=== PATIENT | female | born 1955 | race Caucasian/White ===

== ENCOUNTER → 2016-06-27 | Outpatient (CLI) | payer BC ==
[~2016-06-27] MED LIST: BACTRIM DS TAB1 EACH PO; CALCIUM 600 +1 EAC1 PO; CEFOXITIN2 GM IVPB; CENTRUM SILVER1 EAC4 PO; CINNAMON500 MG PO; CIPRO500 MG PO; CO Q-10100 MG PO; FISH OIL 1,001000 M2 PO; FLAGYL500 MG PO; FLOVENT HFA 1110 MCG INH; FLOVENT HFA 2220 MCG INH; HYDROCODONE-AP1 EAC6 PO; LISINOPRIL-HCT1 EACH PO; LORATIDINE 10 M10 M1 PO; PACERONE 200 M200 M1 PO; PROAIR HFA8.5 GM INH; PROBIOTIC1 EAC1 PO; UROCIT-K10 ME1 PO; VANCOMYCIN HCL1 GM IVPB; VITAMIN D1000 UNIT PO
== END ==
LOC: HYPER 07:03
DX: T81.89XD Other complications of procedures, not elsewhere classified, subsequent encounter (principal); E66.01 Morbid (severe) obesity due to excess calories; K42.9 Umbilical hernia without obstruction or gangrene; K51.90 Ulcerative colitis, unspecified, without complications; Z93.2 Ileostomy status; Y83.8 Other surgical procedures as the cause of abnormal reaction of the patient, or of later complication, without mention of misadventure at the time of the procedure; Z87.891 Personal history of nicotine dependence

== ENCOUNTER 2016-07-02 05:10 | Day surgery (SDC) | payer OTHER, BC ==
[~2016-07-02] VITALS: Ht 167.6 cm; Wt 117.9 kg
--- NOTE | ~2016-07-02 | H ---
[facility] [place] [address] HISTORY AND PHYSICAL Name: MELI FRIAS Room #: 150-3 [facility]#: [id number] Admission: 07/02/16 Attend Phys: Edin Cao MD Discharge: Date of : 55 Report #: [id number] THIS REPORT FOR: //name// CC: Vesna Cao PREOPERATIVE DIAGNOSIS: Left ureteral calculi. HISTORY OF PRESENT ILLNESS: The patient is a 61-year-old female with complex nephrolithiasis in May 2016. The patient underwent cystoscopy with retrograde pyelograms and attempted laser lithotripsy of ureteral calculi. The patient had a stricture within the ureter, and I could not gain access to 2 calculi in the mid to upper ureter to perform lithotripsy. A decompressive ureteral stent was subsequently placed for passive ureteral dilator and the patient now re-presents for repeat ureteroscopy and holmium laser lithotripsy of the calculi. PAST MEDICAL HISTORY: Significant for hypertension, exogenous obesity, anxiety, asthmatic disorder, cervical disk disease and ulcerative colitis. PAST SURGICAL HISTORY: Includes anterior cervical fusion, , arthroscopy, total colectomy with ileostomy, ureteral stone extractions and extracorporeal shock wave lithotripsy. CURRENT MEDICATIONS: Regimen includes amiodarone, lisinopril-HCTZ 10/25 daily, Flovent and albuterol inhalers. ALLERGIES: None known. SOCIAL HISTORY: The patient has a 41-prid-olgc history of smoking with cessation. Does not use alcohol or recreational drugs. FAMILY HISTORY: Noncontributory. PHYSICAL EXAMINATION: GENERAL: The patient is obese, well-developed. HEENT: Normocephalic and atraumatic. NECK: Supple. Thyroid is not palpable. LUNGS: Reveal diminished breath sounds. CARDIOVASCULAR: Regular rate and rhythm without murmur. ABDOMEN: Soft, without mass. She has a right lower quadrant ileostomy. PELVIC: Deferred. NEUROMUSCULAR: Exam is nonfocal. IMPRESSION: Retained left ureteral calculi, previously inaccessible to ureteroscopy. [facility] [address] [place] [address] HISTORY AND PHYSICAL Name: MELI FRIAS Room #: [address] [place] [address]..#: [id number] Admission: 07/02/16 Attend Phys: Edin Cao MD Discharge: Date of : 55 Report #: [id number] PLAN: Ureteroscopic stone extraction with laser lithotripsy. DISCUSSION: I have discussed the procedure with attendant risk of ureteral injury, bleeding and the possibility of the stones not being accessible via retrograde manner. If secondary procedure fails after passive ureteral dilator with indwelling stent, the patient will require percutaneous stone extraction via antegrade approach. <ELECTRONICALLY SIGNED> By: Edin Cao MD 07/02/16 1221 1557 [id number] Edin Cao MD /nt
--- NOTE | ~2016-07-02 | O ---
[facility] [place] [address] OPERATIVE REPORT Name: MELI FRIAS Room #: DEP [facility]#: [id number] Admission: 07/02/16 Attend Phys: Edin Cao MD Discharge: 07/02/16 Date of : 55 Report #: [id number] THIS REPORT FOR: //name// CC: Vesna Cao DATE OF SERVICE: 07/02/2016 PREOPERATIVE DIAGNOSIS: Retained left ureteral calculus. POSTOPERATIVE DIAGNOSIS: Retained left ureteral calculus. PROCEDURE: Cystoscopy with left ureteroscopic stone extraction with assisted holmium laser lithotripsy and replacement of indwelling ureteral stent. INDICATIONS FOR PROCEDURE: The patient is a 61-year-old female with complex nephrolithiasis. Last month, she underwent extraction of a left ureteral stone in the distal ureter. Unfortunately, access to the stone located in the upper ureter was not possible due to anatomical constraints and inability to gain access to the stone via ureteroscopy. The patient had a placement of a decompressive ureteral stent for passive ureteral dilation purposes. She now represents for hopeful extraction of the remaining calculus. SUMMARY OF PROCEDURE AND FINDINGS: First the patient was given a general anesthetic by laryngeal mask in the dorsal lithotomy position. She was prepped with Betadine and draped sterilely. Two grams of Rocephin were given for prophylaxis of infection and sequential compression devices were in place for prophylaxis. A 21-Citizen [place]appler panendoscope was introduced in the bladder. Cystoscopy was carried out. The indwelling ureteral stent is subsequently identified and grasped and pulled out the urethral mucosa through the lumen of the stent, a sensor tip wire was passed up the ureter. Fluoroscopy reveals the stone remains impacted in the upper third of the ureter. Next, a second guidewire is introduced up the ureter via a cystoscope and coaxially, the intramural ureter and distal ureter were dilated with a 12-Citizen [place] ureteral dilator over the working guidewire. With safety guidewire remained an indwelling, a flexible ureteroscope was introduced into the ureter. The stone is subsequently seen and using a 200 micron holmium fiber fragmented into small pieces. The stone is actually retropulsed into the kidney and trapped in a alec where the stone fragmentation is completed. Using a Nitinol stone basket, the stone particles were grasped and extracted from the kidney and about 4 fragments are submitted for crystallographic analysis. After completion of the stone extraction, the cystoscope was retrofitted over the safety guidewire and coaxially, a 7-Citizen [place] 28 cm double-J ureteral stent was placed proximally within the kidney and coiled distally within the bladder. Stent will be left indwelling for a week to allow ureteral healing with planned office followup [address] [address] OPERATIVE REPORT Name: MELI FRIAS Room #: DEP [facility] Kim#: [id number] Admission: 07/02/16 Attend Phys: Edin Cao MD Discharge: 07/02/16 Date of : 55 Report #: [id number] thereafter. No complications are appreciated. The patient is awake from anesthesia and transferred to recovery room whereupon she arrives in satisfactory condition. <ELECTRONICALLY SIGNED> By: Edin Cao MD 07/04/16 1417 1349 1506 Edin Cao MD /nt
[2016-07-02 11:54] VITALS: BP 120/70
[2016-07-02 14:26] VITALS: BP 120/70
== END 2016-07-02 15:15 | disposition home or self-care (01) ==
LOC: TBA 05:10 → OR 05:10
DX: N20.1 Calculus of ureter (principal); I10 Essential (primary) hypertension; F41.9 Anxiety disorder, unspecified; J45.909 Unspecified asthma, uncomplicated; E66.01 Morbid (severe) obesity due to excess calories; K50.90 Crohn's disease, unspecified, without complications; Z93.2 Ileostomy status; Z90.89 Acquired absence of other organs; Z98.51 Tubal ligation status; Z98.890 Other specified postprocedural states; Z87.891 Personal history of nicotine dependence; Z68.41 Body mass index [BMI] 40.0-44.9, adult
CPT/HCPCS: 50010; 50101; 50164; 50478; 51767; 53331; 56815; 62110; 62900; 70005

== ENCOUNTER → 2016-09-28 | Outpatient (CLI) | payer OTHER, BC ==
--- NOTE | ~2016-09-28 | SLE ---
[facility] [address] [place] [address] POLYSOMNOGRAPHY STUDY Name: MELI FRIAS Room #: REG [facility]#: [id number] Admission: 09/28/16 Attend Phys: Ramu Cruz MD Discharge: Date of : 55 Report #: [id number] THIS REPORT FOR: //name// CC: Vesna Diego MD HISTORY: A 61-year-old, 6 feet 5 inches, weight 256 pounds. Usually goes bed between 11-12 p.m., gets out of bed 6-7 a.m., abnormal nocturnal desaturation on room air. COMMENTS: No significant arrhythmia noted. SLEEP SUMMARY: Total sleep time 377 minutes, sleep efficiency 93%. Sleep latency 2 minutes, REM latency 195 minutes. SLEEP STAGE: 1-2%, 2-88%, 3-5%, REM -- 5%. RESPIRATORY SUMMARY: Central apnea 0, obstructive apnea 9, hypopnea 119. Apnea-hypopnea index 20 events per sleep hour. Non-REM AHI 19, REM AHI 50. All sleep was in the supine position. Periodic limb movement with arousal index of 1 event per sleep hour. Low oxygen saturation 72%, spending 2% of recording time less than 90%. IMPRESSION: 1. Obstructive sleep, apnea/hypopnea, G47.33. 2. Periodic limb movement with arousal index of 1 event per sleep hour. 3. No significant arrhythmia. 4. Respiratory effort related arousal 0.2 events per sleep hour. SUGGESTIONS: 1. In addition to specific therapy, the patient should be cautioned regarding driving or operating dangerous machinery unless fully alert. The patient should be cautioned regarding the use of respiratory depressants. Weight loss and TSH per Dr. Diego. 2. Oral appliance or appropriate surgery may be considered with appropriate followup. 3. A CPAP titration night is recommended. 4. If signs and symptoms not improved with therapy, further evaluation recommended. Please do not hesitate to contact me if I may be of further assistance. <ELECTRONICALLY SIGNED> By: Ramu Cruz MD 10/02/165 12 58 Ramu Cruz MD /nt
== END ==
LOC: SLEEPLAB 14:21
DX: G47.33 Obstructive sleep apnea (adult) (pediatric) (principal)

== ENCOUNTER → 2016-10-03 | Outpatient (CLI) | payer OTHER, BC | LOC: HYPER 07:02 | DX: T81.89XD Other complications of procedures, not elsewhere classified, subsequent encounter (principal); E66.01 Morbid (severe) obesity due to excess calories; J45.909 Unspecified asthma, uncomplicated; Z87.891 Personal history of nicotine dependence; Y83.8 Other surgical procedures as the cause of abnormal reaction of the patient, or of later complication, without mention of misadventure at the time of the procedure ==

== ENCOUNTER → 2016-11-07 | Outpatient (CLI) | payer OTHER, BC | LOC: HYPER 07:11 | DX: T81.89XD Other complications of procedures, not elsewhere classified, subsequent encounter (principal); E66.01 Morbid (severe) obesity due to excess calories; K42.9 Umbilical hernia without obstruction or gangrene; J45.909 Unspecified asthma, uncomplicated; Z87.891 Personal history of nicotine dependence; Z93.2 Ileostomy status; Y83.8 Other surgical procedures as the cause of abnormal reaction of the patient, or of later complication, without mention of misadventure at the time of the procedure ==

== ENCOUNTER → 2016-12-19 | Outpatient (CLI) | payer OTHER, BC | LOC: HYPER 07:05 | DX: T81.89XD Other complications of procedures, not elsewhere classified, subsequent encounter (principal); E66.01 Morbid (severe) obesity due to excess calories; K42.9 Umbilical hernia without obstruction or gangrene; Z93.2 Ileostomy status; Z68.41 Body mass index [BMI] 40.0-44.9, adult; J45.909 Unspecified asthma, uncomplicated; Z87.891 Personal history of nicotine dependence; F41.9 Anxiety disorder, unspecified; F32.9 Major depressive disorder, single episode, unspecified; Y83.8 Other surgical procedures as the cause of abnormal reaction of the patient, or of later complication, without mention of misadventure at the time of the procedure ==

== ENCOUNTER → 2017-01-30 | Outpatient (CLI) | payer OTHER, BC | LOC: HYPER 07:02 | DX: T81.89XD Other complications of procedures, not elsewhere classified, subsequent encounter (principal); E66.01 Morbid (severe) obesity due to excess calories; K42.9 Umbilical hernia without obstruction or gangrene; Z68.41 Body mass index [BMI] 40.0-44.9, adult; J45.909 Unspecified asthma, uncomplicated; Z87.891 Personal history of nicotine dependence; Y83.8 Other surgical procedures as the cause of abnormal reaction of the patient, or of later complication, without mention of misadventure at the time of the procedure ==

== ENCOUNTER → 2017-03-13 | Outpatient (CLI) | payer OTHER, BC | LOC: SLEEPLAB 10-22 11:58 → HYPER 07:04 | DX: T81.89XD Other complications of procedures, not elsewhere classified, subsequent encounter (principal); K42.9 Umbilical hernia without obstruction or gangrene; E66.01 Morbid (severe) obesity due to excess calories; Z93.2 Ileostomy status; J45.909 Unspecified asthma, uncomplicated; Z87.891 Personal history of nicotine dependence; Y83.8 Other surgical procedures as the cause of abnormal reaction of the patient, or of later complication, without mention of misadventure at the time of the procedure ==

== ENCOUNTER → 2017-05-15 | Outpatient (CLI) | payer OTHER, BC | LOC: HYPER 07:00 | DX: T81.89XD Other complications of procedures, not elsewhere classified, subsequent encounter (principal); K42.9 Umbilical hernia without obstruction or gangrene; E66.01 Morbid (severe) obesity due to excess calories; Z68.41 Body mass index [BMI] 40.0-44.9, adult; J45.909 Unspecified asthma, uncomplicated; Z87.891 Personal history of nicotine dependence; Y83.8 Other surgical procedures as the cause of abnormal reaction of the patient, or of later complication, without mention of misadventure at the time of the procedure ==

== ENCOUNTER → 2017-07-03 | Outpatient (CLI) | payer OTHER, BC | LOC: HYPER 06:35 | DX: T81.89XD Other complications of procedures, not elsewhere classified, subsequent encounter (principal); K42.9 Umbilical hernia without obstruction or gangrene; E66.01 Morbid (severe) obesity due to excess calories; Z68.41 Body mass index [BMI] 40.0-44.9, adult; J45.909 Unspecified asthma, uncomplicated; Z93.2 Ileostomy status; Z87.891 Personal history of nicotine dependence; Y83.8 Other surgical procedures as the cause of abnormal reaction of the patient, or of later complication, without mention of misadventure at the time of the procedure ==

== ENCOUNTER → 2017-08-28 | Outpatient (CLI) | payer OTHER, BC | LOC: HYPER 06:56 | DX: T81.89XD Other complications of procedures, not elsewhere classified, subsequent encounter (principal); K42.9 Umbilical hernia without obstruction or gangrene; J45.909 Unspecified asthma, uncomplicated; E66.01 Morbid (severe) obesity due to excess calories; Z68.41 Body mass index [BMI] 40.0-44.9, adult; Z93.2 Ileostomy status; Z87.891 Personal history of nicotine dependence; Y83.8 Other surgical procedures as the cause of abnormal reaction of the patient, or of later complication, without mention of misadventure at the time of the procedure ==

== ENCOUNTER → 2018-01-01 | Outpatient (CLI) | payer OTHER, BC | LOC: HYPER 12-31 17:09 | DX: T81.89XD Other complications of procedures, not elsewhere classified, subsequent encounter (principal); E66.01 Morbid (severe) obesity due to excess calories; K42.9 Umbilical hernia without obstruction or gangrene; J45.909 Unspecified asthma, uncomplicated; Z93.2 Ileostomy status; Z68.41 Body mass index [BMI] 40.0-44.9, adult; Z87.891 Personal history of nicotine dependence; Y83.8 Other surgical procedures as the cause of abnormal reaction of the patient, or of later complication, without mention of misadventure at the time of the procedure ==

== ENCOUNTER → 2018-05-21 | Outpatient (CLI) | payer OTHER, BC | LOC: HYPER 06:47 | DX: T81.89XD Other complications of procedures, not elsewhere classified, subsequent encounter (principal); K42.9 Umbilical hernia without obstruction or gangrene; E66.01 Morbid (severe) obesity due to excess calories; J45.909 Unspecified asthma, uncomplicated; Z93.2 Ileostomy status; Z68.41 Body mass index [BMI] 40.0-44.9, adult; Z87.891 Personal history of nicotine dependence; Y83.8 Other surgical procedures as the cause of abnormal reaction of the patient, or of later complication, without mention of misadventure at the time of the procedure ==

== ENCOUNTER → 2018-07-30 | Outpatient (CLI) | payer OTHER | LOC: HYPER 07:37 | DX: T81.89XD Other complications of procedures, not elsewhere classified, subsequent encounter (principal); E66.01 Morbid (severe) obesity due to excess calories; K42.9 Umbilical hernia without obstruction or gangrene; J45.909 Unspecified asthma, uncomplicated; Z93.2 Ileostomy status; Z87.891 Personal history of nicotine dependence; Z68.41 Body mass index [BMI] 40.0-44.9, adult; Y83.8 Other surgical procedures as the cause of abnormal reaction of the patient, or of later complication, without mention of misadventure at the time of the procedure ==

== ENCOUNTER → 2018-09-24 | Outpatient (CLI) | payer OTHER | LOC: HYPER 06:47 | DX: T81.89XD Other complications of procedures, not elsewhere classified, subsequent encounter (principal); E66.01 Morbid (severe) obesity due to excess calories; K42.9 Umbilical hernia without obstruction or gangrene; J45.909 Unspecified asthma, uncomplicated; Z68.41 Body mass index [BMI] 40.0-44.9, adult; Z93.2 Ileostomy status; Z87.891 Personal history of nicotine dependence; Y83.8 Other surgical procedures as the cause of abnormal reaction of the patient, or of later complication, without mention of misadventure at the time of the procedure ==

== ENCOUNTER → 2018-12-24 | Outpatient (CLI) | payer OTHER | LOC: HYPER 06:27 | DX: T81.89XD Other complications of procedures, not elsewhere classified, subsequent encounter (principal); K42.9 Umbilical hernia without obstruction or gangrene; E66.01 Morbid (severe) obesity due to excess calories; J45.909 Unspecified asthma, uncomplicated; Z93.2 Ileostomy status; Z68.42 Body mass index [BMI] 45.0-49.9, adult; Z87.891 Personal history of nicotine dependence; Y83.8 Other surgical procedures as the cause of abnormal reaction of the patient, or of later complication, without mention of misadventure at the time of the procedure ==

== ENCOUNTER → 2019-03-25 | Outpatient (CLI) | payer OTHER | LOC: HYPER 02:53 | DX: T81.89XD Other complications of procedures, not elsewhere classified, subsequent encounter (principal); K42.9 Umbilical hernia without obstruction or gangrene; E66.01 Morbid (severe) obesity due to excess calories; J45.909 Unspecified asthma, uncomplicated; Z93.2 Ileostomy status; Z68.41 Body mass index [BMI] 40.0-44.9, adult; Z87.891 Personal history of nicotine dependence; Y83.8 Other surgical procedures as the cause of abnormal reaction of the patient, or of later complication, without mention of misadventure at the time of the procedure ==

== ENCOUNTER → 2020-01-27 | Outpatient (CLI) | payer OTHER | LOC: HYPER 09:26 | PROVIDERS: ATTEND Emergency Medicine | DX: T81.31XD Disruption of external operation (surgical) wound, not elsewhere classified, subsequent encounter (principal); K42.9 Umbilical hernia without obstruction or gangrene; E66.01 Morbid (severe) obesity due to excess calories; J45.909 Unspecified asthma, uncomplicated; K50.90 Crohn's disease, unspecified, without complications; Z68.41 Body mass index [BMI] 40.0-44.9, adult; Z93.2 Ileostomy status; Z87.891 Personal history of nicotine dependence; Y83.8 Other surgical procedures as the cause of abnormal reaction of the patient, or of later complication, without mention of misadventure at the time of the procedure ==

== ENCOUNTER → 2020-05-25 | Outpatient (CLI) | payer OTHER | LOC: HYPER 09:37 | PROVIDERS: ATTEND Emergency Medicine | DX: T81.31XD Disruption of external operation (surgical) wound, not elsewhere classified, subsequent encounter (principal); L84 Corns and callosities; E66.01 Morbid (severe) obesity due to excess calories; J45.909 Unspecified asthma, uncomplicated; K42.9 Umbilical hernia without obstruction or gangrene; K50.90 Crohn's disease, unspecified, without complications; Z93.2 Ileostomy status; Z68.41 Body mass index [BMI] 40.0-44.9, adult; Z87.891 Personal history of nicotine dependence; Y83.8 Other surgical procedures as the cause of abnormal reaction of the patient, or of later complication, without mention of misadventure at the time of the procedure ==

== ENCOUNTER → 2021-01-04 | Outpatient (CLI) | payer OTHER | LOC: HYPER 07:44 | PROVIDERS: ATTEND Emergency Medicine | DX: L03.311 Cellulitis of abdominal wall (principal); L02.211 Cutaneous abscess of abdominal wall; S31.114A Laceration without foreign body of abdominal wall, left lower quadrant without penetration into peritoneal cavity, initial encounter; K42.9 Umbilical hernia without obstruction or gangrene; Z93.2 Ileostomy status; E66.01 Morbid (severe) obesity due to excess calories; J45.909 Unspecified asthma, uncomplicated; K50.90 Crohn's disease, unspecified, without complications; Z68.41 Body mass index [BMI] 40.0-44.9, adult; X58.XXXA Exposure to other specified factors, initial encounter; Y93.89 Activity, other specified; Y92.89 Other specified places as the place of occurrence of the external cause; Y99.8 Other external cause status ==

== ENCOUNTER → 2021-01-13 | Outpatient (CLI) | payer OTHER | LOC: HYPER 08:27 | PROVIDERS: ATTEND Emergency Medicine | DX: L03.311 Cellulitis of abdominal wall (principal); L98.492 Non-pressure chronic ulcer of skin of other sites with fat layer exposed; L02.211 Cutaneous abscess of abdominal wall; K42.9 Umbilical hernia without obstruction or gangrene; E66.01 Morbid (severe) obesity due to excess calories; J45.909 Unspecified asthma, uncomplicated; K50.90 Crohn's disease, unspecified, without complications; Z93.2 Ileostomy status; Z68.41 Body mass index [BMI] 40.0-44.9, adult; Z87.891 Personal history of nicotine dependence; Z98.890 Other specified postprocedural states; Z79.899 Other long term (current) drug therapy ==